=== PATIENT | female | born 1935 | race Caucasian/White ===

== ENCOUNTER 2017-07-06 12:38 | Emergency (ER) | payer MEDICARE ==
[~2017-07-06] VITALS: Ht 170.2 cm; Wt 76.0 kg
[2017-07-06 12:40] VITALS: BP 184/81; PULSE 58; RESP 16; TEMP 98.3; O2SAT 95
[2017-07-06 13:06] VITALS: BP 223/99; PULSE 89; RESP 16; TEMP 97.8
[2017-07-06] MEDS ORDERED: ESTR0.5T3 PO (13:14)
[2017-07-06] MEDS ORDERED: DILT120C43 PO (13:14)
[2017-07-06] MEDS ORDERED: SODIUM CHLORIDE 0.9% FLUSH 10 ML FLUSH IVF PRN (13:15)
[2017-07-06 13:26] VITALS: BP 187/88; PULSE 66; RESP 17; O2SAT 98
[2017-07-06 13:38] LABS: AUTOMATED NEUTROPHIL # 5.1 TH/MM3 (1.8-7.7); BASOPHIL # 0.1 TH/MM3 (0-0.2); BASOPHIL % 0.7 % (0.0-2.0); EOSINOPHIL # 0.7 TH/MM3 (0-0.4); EOSINOPHIL % 7.7 % (0.0-4.0); HEMATOCRIT 41.8 % (35.0-46.0); HEMO FLAGS DIFF FINAL; LYMPH % 27.1 % (9.0-44.0); LYMPHOCYTE # 2.3 TH/MM3 (1.0-4.8); MEAN CELL VOLUME 88.5 FL (80.0-100.0); MEAN CORPUSCULAR HGB CONC 33.9 % (32.0-36.0); MONO % 5.1 % (0.0-8.0); NEUT % 59.4 % (16.0-70.0); PLATELET COUNT 237 TH/MM3 (150-450); RED BLOOD COUNT 4.72 MIL/MM3 (4.00-5.30); RED CELL DISTRIBUTION WIDTH 13.5 % (11.6-17.2); WHITE BLOOD COUNT 8.6 TH/MM3 (4.0-11.0)
[2017-07-06 13:47] LABS: APTT (PATIENT) 24.4 SEC (24.3-30.1); INTERNATIONAL NORMALIZED RATIO 0.9 RATIO; PROTHROMBIN TIME - PATIENT 9.4 SEC (9.8-11.6)
--- NOTE | 2017-07-06 13:52 | RADRPT ---
EXAM DATE/TIME: 07/06/2017 13:29 [facility] COMPARISON: No previous studies available for comparison. INDICATIONS : Patient complains of jaw numbness with left hand andarm numbness which started today. MEDICAL HISTORY : None. SURGICAL HISTORY : Cholecystectomy. Hysterectomy. ENCOUNTER: Initial ACUITY: 1 day PAIN SCORE: 0/10 LOCATION: Bilateral Chest. FINDINGS: A single view of the chest demonstrates the lungs to be symmetrically aerated without evidence of mas s, infiltrate or effusion. The cardiomediastinal contours are unremarkable. Osseous structures are intact. CONCLUSION: Normal examination. Freddy Yeboah MD on July 06, 2017 at 13:50 Board Certified Radiologist. This report was verified electronically.
[2017-07-06 13:58] LABS: ANION GAP 8 MEQ/L (5-15); AST (GOT) 15 U/L (15-37); BICARBONATE 23.8 MEQ/L (21.0-32.0); BLOOD UREA NITROGEN 19 MG/DL (7-18); CHLORIDE 107 MEQ/L (98-107); GLOMERULAR FILTRATION RATE 68 ML/MIN (>89); POTASSIUM 4.1 MEQ/L (3.5-5.1); SODIUM (NA) 139 MEQ/L (136-145)
[2017-07-06 13:59] LABS: ALT (GPT) 22 U/L (10-53)
[2017-07-06 14:03] LABS: ALKALINE PHOSPHATASE 95 U/L (45-117); CREATINE KINASE 60 U/L (26-192); TOTAL BILIRUBIN ADULT 0.3 MG/DL (0.2-1.0)
--- NOTE | 2017-07-06 14:14 | RADRPT ---
EXAM DATE/TIME: 07/06/2017 13:48 [facility] COMPARISON: No previous studies available for comparison. INDICATIONS : Left side face and hand numbness. RADIATION DOSE: 35.51 CTDIvol (mGy) MEDICAL HISTORY : Stroke. Hypertension. SURGICAL HISTORY : Cholecystectomy. Hysterectomy. ENCOUNTER: Initial ACUITY: 1 day PAIN SCALE: 0/10 LOCATION: Left cranial TECHNIQUE: Multiple contiguous axial images were obtained of the head. Using automated exposure control and adj ustment of the mA and/or kV according to patient size, radiation dose was kept as low as reasonably a chievable to obtain optimal diagnostic quality images. DICOM format image data is available electro nically for review and comparison. FINDINGS: CEREBRUM: Mild diffuse triple atrophy. The ventricles are normal for age. No evidence of midline shift, mass l esion, hemorrhage or acute infarction. No extra-axial fluid collections are seen. POSTERIOR FOSSA: The cerebellum and brainstem are intact. The 4th ventricle is midline. The cerebellopontine angle i s unremarkable. EXTRACRANIAL: The visualized portion of the orbits is intact. SKULL: The calvaria is intact. No evidence of skull fracture. CONCLUSION: 1. Senescent changes without acute intracranial abnormality. Daniel Barber MD on July 06, 2017 at 14:11 Board Certified Radiologist. This report was verified electronically.
[2017-07-06] MEDS ORDERED: SODIUM CHLORID 0.9% 500 ML INJ 500 ML IV ONE (14:15)
[2017-07-06 15:02] LABS: BACTERIA, URINE FEW /hpf; BLOOD, URINE NEG (NEG); GLUCOSE,URINE NEG (NEG); KETONE, URINE NEG (NEG); MUCUS URINE FEW /lpf (OCC); NITRITE,URINE POS (NEG); PH, URINE 5.5 (5.0-8.5); SQUAMOUS EPITHELIAL CELL URINE 2 /hpf (0-5); URINE COLOR YELLOW (YELLW/STRAW)
--- NOTE | 2017-07-06 15:02 | PD ---
HPI Chief Complaint: Numbness/Tingling Time Seen by Provider: 13:12 Travel History International Travel<30 days: No Contact w/Intl Traveler<30days: No Traveled to known affect area: No History of Present Illness HPI 81-year-old female with history of previous TIAs, presents today with complaints of numbness and tingling to her left side of her face left arm and left leg prior to arrival. She presented roughly 45 minutes after presented. By the time she arrived here she was without symptoms. 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 The patient has no complaints at this time my examination. There is no headache, dizziness, fevers, chills. There is no chest pain, chest pressure. When asked if she was on aspirin or Plavix for her previous TIAs, she stated she was told she couldn't take them. This was clarified that when she was on Coumadin for what they initially thought was A. fib, she was told not to take aspirin or aspirin products. She' s been off the Coumadin as she is not in A. fib. PFSH Past Medical History Arthritis: Yes Cerebrovascular Accident: Yes Hypertension: Yes Influenza Vaccination: No Para: 2 Past Surgical History Cholecystectomy: Yes Hysterectomy: Yes Social History Alcohol Use: No Tobacco Use: No Substance Use: No Allergies-Medications (Allergen,Severity, Reaction): Coded Allergies: No Known Allergies (Unverified , 07/06/17) Reported Meds & Prescriptions Reported Meds & Active Scripts Active Macrobid (Nitrofurantoin Monohydrate Macrocrystals) 100 Mg Capsule 100 Mg PO BID 7 Days Reported Estrace (Estradiol) 0.5 Mg Tab 0.5 Mg PO DAILY Dilt-Xr (Diltiazem HCl) 120 Mg Capdr 120 Mg PO DAILY Review of Systems Except as stated in HPI: all other systems reviewed are Neg General / Constitutional: No: Fever, Chills HENT: No: Headaches, Lightheadedness, Neck Pain Cardiovascular: Positive: Irregular Rhythm, No: Chest Pain or Discomfort, Palpitations Respiratory: No: Cough, Shortness of Breath Gastrointestinal: No: Nausea, Vomiting, Abdominal Pain Genitourinary: No: Frequency, Dysuria Musculoskeletal: No: Weakness, Pain Neurologic: Positive: Sensory Disturbance (numbness and tingling to the left face and left arm and left leg prior to arrival. Patient is symptom-free now.) , No: Weakness, Dizziness, Headache, Change in Mentation Physical Exam Narrative GENERAL: Well-developed well-nourished female in no acute respiratory distress. SKIN: Focused skin assessment warm/dry. HEAD: Atraumatic. Normocephalic. EYES: . No scleral icterus. No injection or drainage. ENT: No nasal bleeding or discharge. Mucous membranes pink and moist. NECK: Trachea midline. Supple. CARDIOVASCULAR: Regular rate and rhythm. No murmur appreciated. RESPIRATORY: No accessory muscle use. Clear to auscultation. Breath sounds equal bilaterally. GASTROINTESTINAL: Abdomen soft, non-tender, nondistended. Hepatic and splenic margins not palpable. MUSCULOSKELETAL: No obvious deformities. No clubbing. No cyanosis. No edema. NEUROLOGICAL: Awake and alert. No obvious cranial nerve deficits. Motor grossly within normal limits. Normal speech. Patient denies any numbness or tingling on exam. PSYCHIATRIC: Appropriate mood and affect; insight and judgment normal. Data Data Last Documented VS Vital Signs Date Time Temp Pulse Resp B/P (MAP) Pulse Ox O2 Delivery O2 Flow Rate FiO2 07/06/17 13:26 66 17 187/88 (121) 98 07/06/17 13:08 Room Air 07/06/17 13:06 97.8 Orders Orders Electrocardiogram (07/06/17 13:12) Prothrombin Time / Inr (Pt) (07/06/17 13:12) Act Partial Throm Time (Ptt) (07/06/17 13:12) Complete Blood Count With Diff (07/06/17 13:12) Comprehensive Metabolic Panel (07/06/17 13:12) Creatine Kinase (Cpk) (07/06/17 13:12) Troponin I (07/06/17 13:12) Urinalysis - C+S If Indicated (07/06/17 13:12) Ct Brain W/O Iv Contrast(Rout) (07/06/17 13:12) Chest, Single Ap (07/06/17 13:12) Ecg Monitoring (07/06/17 13:12) Iv Access Insert/Monitor (07/06/17 13:12) Oximetry (07/06/17 13:12) Sodium Chloride 0.9% Flush (Ns Flush) (07/06/17 13:15) Sodium Chlorid 0.9% 500 Ml Inj (Ns 500 M (07/06/17 14:15) Urine Culture (07/06/17 14:40) Ceftriaxone Inj (Rocephin Inj) (07/06/17 15:45) Labs Laboratory Tests Test 07/06/17 13:20 07/06/17 14:40 White Blood Count 8.6 TH/MM3 Red Blood Count 4.72 MIL/MM3 Hemoglobin 14.2 GM/DL Hematocrit 41.8 % Mean Corpuscular Volume 88.5 FL Mean Corpuscular Hemoglobin 30.0 PG Mean Corpuscular Hemoglobin Concent 33.9 % Red Cell Distribution Width 13.5 % Platelet Count 237 TH/MM3 Mean Platelet Volume 8.0 FL Neutrophils (%) (Auto) 59.4 % Lymphocytes (%) (Auto) 27.1 % Monocytes (%) (Auto) 5.1 % Eosinophils (%) (Auto) 7.7 % Basophils (%) (Auto) 0.7 % Neutrophils # (Auto) 5.1 TH/MM3 Lymphocytes # (Auto) 2.3 TH/MM3 Monocytes # (Auto) 0.4 TH/MM3 Eosinophils # (Auto) 0.7 TH/MM3 Basophils # (Auto) 0.1 TH/MM3 CBC Comment DIFF FINAL Differential Comment Prothrombin Time 9.4 SEC Prothromb Time International Ratio 0.9 RATIO Activated Partial Thromboplast Time 24.4 SEC Blood Urea Nitrogen 19 MG/DL Creatinine 0.81 MG/DL Random Glucose 114 MG/DL Total Protein 7.1 GM/DL Albumin 3.3 GM/DL Calcium Level 8.6 MG/DL Alkaline Phosphatase 95 U/L Aspartate Amino Transf (AST/SGOT) 15 U/L Alanine Aminotransferase (ALT/SGPT) 22 U/L Total Bilirubin 0.3 MG/DL Sodium Level 139 MEQ/L Potassium Level 4.1 MEQ/L Chloride Level 107 MEQ/L Carbon Dioxide Level 23.8 MEQ/L Anion Gap 8 MEQ/L Estimat Glomerular Filtration Rate 68 ML/MIN Total Creatine Kinase 60 U/L Troponin I LESS THAN 0.02 NG/ML Urine Color YELLOW Urine Turbidity HAZY Urine pH 5.5 Urine Specific [place] 1.021 Urine Protein TRACE mg/dL Urine Glucose (UA) NEG mg/dL Urine Ketones NEG mg/dL Urine Occult Blood NEG Urine Nitrite POS Urine Bilirubin NEG Urine Urobilinogen LESS THAN 2.0 MG/DL Urine Leukocyte Esterase TRACE Urine WBC 11 /hpf Urine Squamous Epithelial Cells 2 /hpf Urine Bacteria FEW /hpf Urine Mucus FEW /lpf Microscopic Urinalysis Comment CATH-CULTURE IND MDM Medical Decision Making Medical Screen Exam Complete: Yes Emergency Medical Condition: Yes Differential Diagnosis TIA versus metabolic arrangement versus dehydration Narrative Course 81-year-old female history of previous TIAs, presents here after having an episode where she had numbness and tingling to her left face left arm and left leg. This was 45 minutes prior to arrival. It had resolved prior to coming to the ED. The patient's head CT shows no evidence of acute process. Labs showed mild dehydration. She's been given 500 cc fluid bolus. Urinalysis also shows UTI. She's been given 1 g of Rocephin. She'll be discharged with a prescription for Macrobid, 100 twice a day 7 days. Given that she's had previous TIAs, recommendation will be that she take a baby aspirin per day. Recommendation that she also follow up with her primary care doctor and a neurologist when she arrives home in [facility]. She is scheduled to go home tomorrow. Diagnosis Primary Impression: paresthesias resolved Additional Impressions: Mild dehydration Urinary tract infection Additional Instructions: Take a baby aspirin daily. Follow up with your primary care doctor and a neurologist when you arrive home in [place]. Increase her fluid intake over the next 2-3 days. Med/Other Pt SpecificInfo: Prescription(s) given Scripts Nitrofurantoin Monohydrate Macrocrystals (Macrobid) 100 Mg Capsule 100 MG PO BID for Infection for 7 Days, #14 CAP 0 Refills Prov: Louis Dodge MD 07/06/17 Disposition: 01 DISCHARGE HOME Condition: Stable Louis Dodge MD Jul 06, 2017 15:02
[2017-07-06 15:03] LABS: COMMENT (UR) CATH-CULTURE IND; CULTURE IF INDICATED CATH CULTURE IND
[2017-07-06] MEDS ORDERED: cefTRIAXone INJ 1,000 MG in SODIUM CHLORIDE 0.9% INJ 100 ML IV ONE (15:45)
[2017-07-06] MEDS ORDERED: MACR100C2 PO (16:03)
[2017-07-06 16:56] VITALS: BP 150/83; TEMP 97.8
--- NOTE | 2017-07-07 17:53 | EKG ---
Date Performed: 07/06/2017 Time Performed: 13:14:15 PTAGE: 81 years EKG: Sinus rhythm NORMAL ECG INTERPRETATION BASED ON A DEFAULT AGE OF 42 YEARS NO PREVIOUS TRACING DOCTOR: Chris Munoz Interpretating Date/Time 07/07/2017 17:51:55
== END 2017-07-06 16:56 | disposition home or self-care (01) ==
LOC: NEPE 12:38
DX: E86.0 Dehydration (principal); N39.0 Urinary tract infection, site not specified; B96.20 Unspecified Escherichia coli [E. coli] as the cause of diseases classified elsewhere; R20.2 Paresthesia of skin; R20.0 Anesthesia of skin; M19.90 Unspecified osteoarthritis, unspecified site; I10 Essential (primary) hypertension; Z86.73 Personal history of transient ischemic attack (TIA), and cerebral infarction without residual deficits; Z79.02 Long term (current) use of antithrombotics/antiplatelets
CPT/HCPCS: 70450; 71010; 80053; 81001; 82550; 84484; 85025; 85610; 85730; 87077; 87086; 87186; 93005; 96361; 96365; 99285; J0696; J7040